=== PATIENT | male | born 1955 | race Caucasian/White ===

== ENCOUNTER 2018-01-24 10:07 | Emergency (ER) | payer SELFPAY ==
--- NOTE | 2018-01-24 10:26 | UC ---
Lower Extremity/Ankle HPI - HPI Summary HPI Summary: 62 yo male presents with right calf pain and swelling for the last 3 days - getting progressively worse. He tells me that 3 days ago he stepped down off a curb awkwardly - did not fall or twist his ankle or have any pain at the time. Later that day noticed his right calf swelling. This got progressively worse over the next day and started constantly aching. He has been trying to elevate it with no relief. Painful to walk. Denies fever, chills, SOB, chest pain, recent travel, or cancer hx. - History of Current Complaint Stated Complaint: SWOLLEN CALF OF LEG Time Seen by Provider: 01/24/18 10:26 Hx Obtained From: Patient Onset/Duration: Sudden Onset Severity Initially: Mild Severity Currently: Severe Pain Intensity: 10 Pain Scale Used: 0-10 Numeric Aggravating Factor(s): Standing, Ambulation Able to Bear Weight: Yes - Allergies/Home Medications Allergies/Adverse Reactions: Allergies Allergy/AdvReac Type Severity Reaction Status Date / Time No Known Allergies Allergy Verified 01/24/18 10:29 Home Medications: Home Medications NK [No Home Medications Reported] 01/24/18 [History Confirmed 01/24/18] PMH/Surg Hx/FS Hx/Imm Hx - Additional Past Medical History Additional PMH: None Previously Healthy: Yes - Surgical History Surgical History: None - Family History Known Family History: Positive: None - Social History Occupation: Employed Full-time Lives: With Family Alcohol Use: Occasionally Substance Use Type: None Smoking Status (MU): Never Smoked Tobacco Review of Systems Constitutional: Negative Skin: Negative Respiratory: Negative Cardiovascular: Negative Gastrointestinal: Negative Neurovascular: Negative Musculoskeletal: Other: - Right calf pain and swelling Neurological: Negative Psychological: Negative All Other Systems Reviewed And Are Negative: Yes Physical Exam - Summary Physical Exam Summary: GENERAL: NAD. WDWN. No pain distress. SKIN: No rashes, sores, lesions, or open wounds. NECK: Supple. Nontender. No lymphadenopathy. CHEST: No accessory muscle use. Breathing comfortably and in no distress. CV: Pulses intact PT and DP - DP on right slightly diminished compared to left. Brisk cap refill. MSK: RIGHT LE: Moderate edema about right calf with moderate TTP. FROM at knee and ankle. Strength 5/5. Negative Sydnie's sign. NEURO: Alert. Sensations intact and symmetric B/L LEs PSYCH: Age appropriate behavior. Triage Information Reviewed: Yes Vital Signs: Vital Signs: Temp Pulse Resp BP Pulse Ox 99.3 F 84 16 125/74 98 01/24/18 10:26 01/24/18 10:26 01/24/18 10:26 01/24/18 10:26 01/24/18 10:26 Lower Extremity Course/Dx - Course Course Of Treatment: US: IMPRESSION: POPLITEAL CYST WITH DISSECTION INTO THE CALF. NO EVIDENCE OF DEEP VENOUS THROMBOSIS. Given the abrupt onset and rapid progression of his right calf edema - I am concerned he may develop compartment syndrome. I called Dr. Garcia (super[facility]) and she will see pt in the office 1 hour from now. Pt was agreeable to this plan. - Differential Dx/Diagnosis Provider Diagnoses: Right calf edema. Right irwin's cyst Discharge - Sign-Out/Discharge Documenting (check all that apply): Discharge/Admit/Transfer - Discharge Plan Condition: Stable Disposition: HOME Patient Education Materials: [facility] (ED) Referrals: No Primary Care Phys,NOPCP [Primary Care Provider] - Austin Garcia MD [Medical Doctor] - As Soon As Possible Additional Instructions: If you develop a fever, shortness of breath, chest pain, new or worsening symptoms - please call your PCP or go to the ED. Orthopedics will see you this afternoon - please go to their office at the location below - Billing Disposition and Condition Condition: STABLE Disposition: Home
[2018-01-24 10:29] VITALS: BP 125/74
--- NOTE | 2018-01-24 11:42 | RAD ---
INDICATION: Pain and swelling. COMPARISON: None TECHNIQUE: Duplex interrogation of the right lowerextremity was performed. FINDINGS: Deep veins: The common femoral, great saphenous, profunda femoris, proximal, mid, and distal deep femoral, popliteal, posterior tibial, and peroneal veins are patent. There is normal compressibility, augmentation, and phasic flow. Superficial veins: There are no findings of superficial thrombophlebitis. Popliteal fossa:There is a popliteal cyst measuring 2.2 x 2.7 x 4.8 cm which appears to dissect into the calf. Soft tissues:There are no soft tissue abnormalities. IMPRESSION: POPLITEAL CYST WITH DISSECTION INTO THE CALF. NO EVIDENCE OF DEEP VENOUS THROMBOSIS.
== END 2018-01-24 12:03 | disposition home or self-care (01) ==
LOC: UCEAST 10:07
DX: M79.89 Other specified soft tissue disorders (principal); M71.21 Synovial cyst of popliteal space [Baker], right knee
CPT/HCPCS: 99201; G0463

== ENCOUNTER 2021-07-17 10:49 | Inpatient (IN) ==
[2021-07-17 11:25] LABS: Hematocrit 56 % (42-52); Hemoglobin 19.6 g/dL (14.0-18.0); Mean Corpuscular HGB Conc 35 g/dL (31-36); Mean Corpuscular Hemoglobin 31 pg (27-31); Mean Corpuscular Volume 89 fL (80-94); Mean Platelet Volume 9.2 fL (7.4-10.4); Platelet Count 255 10^3/uL (150-450); Red Blood Count 6.24 10^6 /uL (4.18-5.48); Red Cell Distribution Width 13 % (10-15); White Blood Count 9.5 10^3/uL (3.5-10.8)
[2021-07-17 11:31] LABS: INR 1.13 (0.86-1.15)
[2021-07-17 11:43] LABS: ALT 54 U/L (7-52); AST 29 U/L (13-39); Albumin 5.4 g/dL (3.2-5.2); Albumin/Globulin Ratio 1.5 (1-3); Alkaline Phosphatase 99 U/L (35-149); Anion Gap 19 mmol/L (2-11); Blood Urea Nitrogen 69 mg/dL (6-24); CO2 Carbon Dioxide 32 mmol/L (22-32); Calcium 10.9 mg/dL (8.6-10.3); Chloride 79 mmol/L (101-111); Globulin 3.7 g/dL (2-4); Glucose 162 mg/dL (70-100); Potassium 3.2 mmol/L (3.5-5.0); Sodium 130 mmol/L (135-145); Total Protein 9.1 g/dL (6.4-8.9)
[2021-07-17 12:09] LABS: ABS Lymphocytes 1.5 10^3/ul (1.0-4.8); ABS Monocytes 1.6 10^3/ul (0-0.8); ABS Neutrophils 6.3 10^3/ul (1.5-7.7); Eosinophil % 0.2 %; Lymphocyte % 16.2 %; Nucleated Red Blood Cells % 0.5
[2021-07-17] MEDS ORDERED: Lactated Ringers 1000 ml BAG 1,000 ML IV ONE (12:23)
[2021-07-17 12:24] LABS: Troponin I 0.03 ng/mL (<0.03)
[2021-07-17] MEDS ORDERED: Famotidine IV 10 MG/ML 2 ml VIAL (20 mg) IV SLOW PU ONE (12:27)
[2021-07-17 12:44] LABS: TSH Ultra Thyroid Stim Horm 3.14 mcIU/mL (0.34-5.60)
[2021-07-17] MEDS: KCL 20 MEQ/100 ML IVPREMIX 20 MEQ/100 ML BAG IV SCH ×2 (12:48→16:31)
[2021-07-17 13:24] LABS: Troponin I 0.03 ng/mL (<0.03)
[2021-07-17 13:30] LABS: Lipase 43 U/L (11.0-82.0); Magnesium 2.7 mg/dL (1.9-2.7)
[2021-07-17] MEDS ORDERED: Ondansetron 4 mg VIAL 2 MG/ML 2 ml VIAL IV ONE (13:47)
[2021-07-17] MEDS ORDERED: Lactated Ringers 1000 ml BAG 1,000 ML IV SCH ×2 (14:00→18:00)
[2021-07-17 17:05] LABS: Urine Appearance Cloudy; Urine Bilirubin Negative (Negative); Urine Blood Negative (Negative); Urine Color Yellow; Urine Glucose Negative (Negative); Urine Ketones Trace (Negative); Urine Nitrite Negative (Negative); Urine Protein 1+(30 mg/dL) (Negative); Urine Urobilinogen Negative (Negative)
[2021-07-17 17:11] LABS: Urine Bacteria Absent (Absent); Urine Red Blood Cell Trace(0-2/hpf) (Absent); Urine Squamous Epithelial Cell Present (Absent); Urine White Blood Cell Trace(0-5/hpf) (Absent)
[2021-07-17] MEDS ORDERED: Morphine 2 MG/ML SYRINGE IV PRN (17:50)
[2021-07-17 19:56] LABS: Troponin I 0.03 ng/mL (<0.03)
[2021-07-17] MEDS ORDERED: Ondansetron ODT 4 mg TAB 4 MG TAB SL PRN (20:47)
[2021-07-17] MEDS: Heparin 5000 UNITS/ML 1 mL VIAL SUBCUT SCH (21:22)
[2021-07-17] MEDS: Pantoprazole VIAL 40 MG VIAL IV SCH (21:22)
[2021-07-17 21:50] LABS: Calcium 9.8 mg/dL (8.6-10.3); Potassium 2.9 mmol/L (3.5-5.0); eGFR CKD-EPI 41.8 (>60)
[2021-07-17] MEDS ORDERED: Heparin 5000 UNITS/ML 1 mL VIAL SUBCUT SCH (22:00)
[2021-07-17] MEDS ORDERED: Potassium Chlor 20 meq TAB.ER PO ONE (23:02)
[2021-07-18] MEDS: Potassium Chloride IV 40 MEQ in Lactated Ringers 1000 ml BAG 1,000 ML IVPB SCH ×2 (00:20→09:51)
[2021-07-18 06:29] LABS: ABS Monocytes 1.2 10^3/ul (0-0.8); ABS Neutrophils 4.5 10^3/ul (1.5-7.7); Eosinophil % 0.4 %; Hematocrit 49 % (42-52); Hemoglobin 17.2 g/dL (14.0-18.0); Lymphocyte % 25.4 %; Mean Corpuscular HGB Conc 35 g/dL (31-36); Mean Corpuscular Hemoglobin 31 pg (27-31); Mean Corpuscular Volume 89 fL (80-94); Mean Platelet Volume 9.7 fL (7.4-10.4); Nucleated Red Blood Cells % 0.2; Platelet Count 216 10^3/uL (150-450); Red Blood Count 5.56 10^6 /uL (4.18-5.48); Red Cell Distribution Width 13 % (10-15); White Blood Count 7.7 10^3/uL (3.5-10.8)
[2021-07-18 06:50] LABS: Potassium 3.2 mmol/L (3.5-5.0); eGFR CKD-EPI 48.5 (>60)
[2021-07-18 06:51] LABS: Albumin 4.4 g/dL (3.2-5.2); Albumin/Globulin Ratio 1.5 (1-3); Calcium 9.7 mg/dL (8.6-10.3); Total Bilirubin 1.3 mg/dL (0.2-1.0); Total Protein 7.4 g/dL (6.4-8.9)
[2021-07-18] MEDS ORDERED: Pantoprazole VIAL 40 MG VIAL IV SCH (09:00)
[2021-07-18] MEDS ORDERED: Flu vaccine *QUAD* 2021-22* 0.5 ML SYRINGE IM ONE (09:00)
[2021-07-18] MEDS ORDERED: Phenol 1.4% Throat Spray 177 ml BTL MT PRN (10:13)
[2021-07-18] MEDS ORDERED: Perflutren Lipid Microsphere 3 ML VIAL ONE (10:16)
[2021-07-18] MEDS: Heparin 5000 UNITS/ML 1 mL VIAL SUBCUT SCH ×2 (10:43→21:23)
[2021-07-18] MEDS: Pantoprazole VIAL 40 MG VIAL IV SCH (10:43)
[2021-07-18] MEDS: NS 0.9% w/ 40 Meq KCL 1000 ML 1,000 ML IV SCH ×2 (10:47→22:29)
[2021-07-18] MEDS ORDERED: Lactated Ringers 1000 ml BAG 1,000 ML IV ONE (11:25)
[2021-07-18 13:21] LABS: Calcium 9.5 mg/dL (8.6-10.3); Magnesium 2.5 mg/dL (1.9-2.7); Potassium 3.5 mmol/L (3.5-5.0); eGFR CKD-EPI 48.9 (>60)
[2021-07-19 05:24] LABS: ABS Eosinophils 0.1 10^3/ul (0-0.6); ABS Lymphocytes 2.5 10^3/ul (1.0-4.8); ABS Monocytes 1.3 10^3/ul (0-0.8); ABS Neutrophils 5.9 10^3/ul (1.5-7.7); Eosinophil % 0.7 %; Hematocrit 43 % (42-52); Hemoglobin 14.8 g/dL (14.0-18.0); Lymphocyte % 25.1 %; Mean Corpuscular HGB Conc 34 g/dL (31-36); Mean Corpuscular Hemoglobin 31 pg (27-31); Mean Corpuscular Volume 90 fL (80-94); Mean Platelet Volume 9.8 fL (7.4-10.4); Nucleated Red Blood Cells % 0.1; Platelet Count 167 10^3/uL (150-450); Red Cell Distribution Width 13 % (10-15); White Blood Count 9.8 10^3/uL (3.5-10.8)
[2021-07-19 05:43] LABS: Albumin 3.7 g/dL (3.2-5.2); Albumin/Globulin Ratio 1.5 (1-3); Calcium 8.8 mg/dL (8.6-10.3); Globulin 2.5 g/dL (2-4); Magnesium 2.4 mg/dL (1.9-2.7); Potassium 3.6 mmol/L (3.5-5.0); Total Bilirubin 0.9 mg/dL (0.2-1.0); Total Protein 6.2 g/dL (6.4-8.9); eGFR CKD-EPI 75.8 (>60)
[2021-07-19] MEDS: Heparin 5000 UNITS/ML 1 mL VIAL SUBCUT SCH ×2 (09:35→22:06)
[2021-07-19] MEDS: Pantoprazole VIAL 40 MG VIAL IV SCH (09:35)
[2021-07-19] MEDS: NS 0.9% w/ 40 Meq KCL 1000 ML 1,000 ML IV SCH (15:25)
[2021-07-20] MEDS: NS 0.9% 1000 ml BAG 1,000 ML IV SCH ×2 (00:01→18:29)
[2021-07-20 06:50] LABS: Calcium 8.9 mg/dL (8.6-10.3); eGFR CKD-EPI 85.1 (>60)
[2021-07-20] MEDS: Heparin 5000 UNITS/ML 1 mL VIAL SUBCUT SCH ×2 (08:20→21:42)
[2021-07-20] MEDS: Pantoprazole VIAL 40 MG VIAL IV SCH (09:13)
[2021-07-20] MEDS ORDERED: Bupivacaine 0.5% SDV PF 30ML VIAL ONE (10:54)
[2021-07-20] MEDS ORDERED: Lidocaine 1.5% EPI 1:200,000 30 ML SDV ONE (10:54)
[2021-07-20] MEDS ORDERED: DiMENhydriNATE IV 50 mg/ml 1 ml VIAL IV PUSH PRN (14:04)
[2021-07-20] MEDS ORDERED: Naloxone 0.4 mg VIAL 0.4 mg/ml 1 ml VIAL IV PRN (14:04)
[2021-07-20] MEDS ORDERED: fentaNYL 100 mcg/2 ml 50 MCG/ML VIAL IV PRN (14:04)
[2021-07-20] MEDS: Acetaminophen IV 1 GM/100ML 100 ML IV SCH (23:34)
[2021-07-21] MEDS: NS 0.9% 1000 ml BAG 1,000 ML IV SCH (02:58)
[2021-07-21 06:10] LABS: ABS Eosinophils 0.1 10^3/ul (0-0.6); ABS Lymphocytes 1.8 10^3/ul (1.0-4.8); ABS Monocytes 1.3 10^3/ul (0-0.8); ABS Neutrophils 7.5 10^3/ul (1.5-7.7); Eosinophil % 0.5 %; Hematocrit 38 % (42-52); Hemoglobin 13.1 g/dL (14.0-18.0); Lymphocyte % 16.7 %; Mean Corpuscular HGB Conc 34 g/dL (31-36); Mean Corpuscular Hemoglobin 32 pg (27-31); Mean Corpuscular Volume 92 fL (80-94); Mean Platelet Volume 9.4 fL (7.4-10.4); Platelet Count 165 10^3/uL (150-450); Red Blood Count 4.14 10^6 /uL (4.18-5.48); Red Cell Distribution Width 13 % (10-15); White Blood Count 10.7 10^3/uL (3.5-10.8)
[2021-07-21 06:30] LABS: Calcium 8.5 mg/dL (8.6-10.3); Magnesium 1.8 mg/dL (1.9-2.7); Potassium 3.8 mmol/L (3.5-5.0); eGFR CKD-EPI 97.4 (>60)
[2021-07-21 08:25] VITALS: BP 120/68
[2021-07-21] MEDS: Acetaminophen IV 1 GM/100ML 100 ML IV SCH (09:43)
[2021-07-21] MEDS: Pantoprazole VIAL 40 MG VIAL IV SCH (09:44)
[2021-07-21] MEDS: Heparin 5000 UNITS/ML 1 mL VIAL SUBCUT SCH (09:44)
== END 2021-07-21 11:15 | disposition home or self-care (01) | DRG 351 ==
LOC: ED 10:49 → SUATTDRO 17:36 → EDHOLD 17:48 → SSU 23:24
PROVIDERS: ADMIT Internal Medicine; ATTEND Student in an Organized Health Care Education/Training Program